=== PATIENT | female | born 1990 | race Caucasian/White ===

== ENCOUNTER 2019-08-15 18:25 | Emergency (ER) | payer OTHER ==
[~2019-08-15] VITALS: Ht 154.9 cm; Wt 71.8 kg
[2019-08-15 18:35] VITALS: BP 125/80
[2019-08-15] MEDS ORDERED: NEOM10DR32 EACH EAR (19:30)
--- NOTE | 2019-08-15 19:31 | PHYS DOC ---
Past Medical History Past Medical History: No Pertinent History Past Surgical History: Smoking Status: Never Smoker Alcohol Use: None Drug Use: None Adult General Chief Complaint Chief Complaint: EARACHE/EAR PAIN HPI HPI Patient is a 29 year old female patient who presents to the ED today with right ear pain that began this morning. Patient reports using [id number]-[id number] eardrops with no relief. Denies any fever coughing or congestion but reports she was diagnosed with influenza on Wednesday this week. Review of Systems Review of Systems Constitutional: Denies fever or chills [] Eyes: Denies change in visual acuity, redness, or eye pain [] HENT: Reports right ear pain. Denies nasal congestion or sore throat [] Respiratory: Denies cough or shortness of breath [] Cardiovascular: No additional information not addressed in HPI [] GI: Denies abdominal pain, nausea, vomiting, bloody stools or diarrhea [] : Denies dysuria or hematuria [] Musculoskeletal: Denies back pain or joint pain [] Integument: Denies rash or skin lesions [] Neurologic: Denies headache, focal weakness or sensory changes [] All other systems were reviewed and found to be within normal limits, except as documented in this note. Allergies Allergies Allergies Coded Allergies Type Severity Reaction Last Updated Verified No Known Drug Allergies 11/26/15 No Physical Exam Physical Exam Constitutional: Well developed, well nourished, no acute distress, non-toxic appearance. [] HENT: Normocephalic, atraumatic, bilateral external ears normal, oropharynx moist, no oral exudates, nose normal. [] Right ear canal is covered with [id number] eardrop. TM cannot be well- visualized but there is no obvious erythema. Tragus is painful. Eyes: PERRLA, EOMI, conjunctiva normal, no discharge. [] Neck: Normal range of motion, no tenderness, supple, no stridor. [] Cardiovascular:Heart rate regular rhythm, no murmur [] Lungs & Thorax: Bilateral breath sounds clear to auscultation [] Abdomen: Bowel sounds normal, soft, no tenderness, no masses, no pulsatile masses. [] Skin: Warm, dry, no erythema, no rash. [] Back: No tenderness, no CVA tenderness. [] Extremities: No tenderness, no cyanosis, no clubbing, ROM intact, no edema. [] Neurologic: Alert and oriented X 3, normal motor function, normal sensory function, no focal deficits noted. [] Psychologic: Affect normal, judgement normal, mood normal. [] Current Patient Data Vital Signs Vital Signs Date Time Temp Pulse Resp B/P (MAP) Pulse Ox O2 Delivery O2 Flow Rate FiO2 08/15/19 18:35 98.7 98 14 125/80 (95) 97 Room Air 98.7 EKG EKG [] Radiology/Procedures Radiology/Procedures [] Course & Med Decision Making Course & Med Decision Making Pertinent Labs and Imaging studies reviewed. (See chart for details) This is a 29-year-old female patient presenting to the ED today with right ear pain that began this morning. Patient was diagnosed with influenza on Wednesday this week. Right ear canal could not be well-visualized as well as the TM because patient put [id number]-hir-[id number] eardrops in her ears. There is likelihood she could have otitis externa, i doubt acute otitis media considering this no obvious erythema on the amount of TM I can see. D/c with cortisporin ear drops. F/u with PCP in one week. Dragon Disclaimer Dragon Disclaimer This electronic medical record was generated, in whole or in part, using a voice recognition dictation system. Departure Departure Impression: Primary Impression: Otitis externa Disposition: 01 HOME, SELF-CARE Condition: STABLE Referrals: NO PCP (PCP) CORAL ESTRADA MD follow up in 1-2 weeks Patient Instructions: Otitis Externa Additional Instructions: You were evaluated in the emergency room for ear pain. Use the prescribed eardrops as ordered. Follow-up with your own primary care doctor or the provided ENT in 1-2 weeks Scripts Neomycin/Polymyxin B Sulf/Hc ([id number]-[id number]-OR EAR SUSP) 10 Ml Drops.susp 4 DROP EACH EAR TID for 5 Days, #10 ML 0 Refills Prov: KAREY PAULA APRN 08/15/19 Problem Qualifiers Primary Impression: Otitis externa Otitis externa type: other infective Chronicity: acute Laterality: right Qualified Codes: H60.391 - Other infective otitis externa, right ear KAREY PAULA APRN Aug 15, 2019 19:31
== END 2019-08-15 19:37 | disposition home or self-care (01) ==
LOC: ER 18:25
DX: H60.391 Other infective otitis externa, right ear (principal)
CPT/HCPCS: 99283